=== PATIENT | female | born 1940 | race Caucasian/White ===

== ENCOUNTER 2018-07-09 05:59 | Emergency (ER) | payer OTHER ==
--- NOTE | 2018-07-09 06:27 | PDOC ---
*Physical Exam - Vital Signs Last Vital Signs Temp Pulse Resp BP Pulse Ox 98.2 F 86 20 154/86 96 07/09/18 06:10 07/09/18 06:10 07/09/18 06:10 07/09/18 06:10 07/09/18 06:10 Medical Decision Making - Medical Decision Making 07/09/18 06:25 Pt seen by Midlevel Provider under my direct supervision Pt interviewed and examined Ancillary studies reviewed I agree with plan as outlined by Midlevel Provider *DC/Admit/Observation/Transfer Diagnosis at time of Disposition: Musculoskeletal neck pain - Discharge Dispostion Disposition: HOME Condition at time of disposition: Improved - Prescriptions Prescriptions: Ibuprofen [Motrin -] 600 mg PO TID PRN #21 tablet PRN Reason: Pain Oxycodone HCl/Acetaminophen [Percocet 5-325 mg Tablet] 1 - 2 tab PO Q6H PRN #6 tab MDD 4 PRN Reason: Pain - Referrals Referrals: Gavin Sandoval MD [Primary Care Provider] - - Patient Instructions Printed Discharge Instructions: DI for Neck Pain Additional Instructions: Please take medication as prescribed, using Motrin during the day and Percocet for severe pain. If symptoms worsen despite taking the medication please return to the ER immediately. Otherwise follow-up primary care physician. - Post Discharge Activity
[2018-07-09 06:35] VITALS: TEMP 98.2; BMI 26.6
[2018-07-09] MEDS ORDERED: METHOCARBAMOL 500 MG TABLET PO ONE (06:35)
[2018-07-09] MEDS ORDERED: LIDOCAINE 5% TOPICAL PATCH TP ONE (06:35)
--- NOTE | 2018-07-09 06:40 | PDOC ---
History of Present Illness - General Chief Complaint: Pain, Acute Stated Complaint: NECK PAIN Time Seen by Provider: 07/09/18 06:17 History Source: Patient - History of Present Illness Initial Comments: 07/09/18 06:36 78 year old female with with right sided neck pain radiating up the head x 1 days. patient reports that she woke up with neck painb, unsure if strained it. denies midline pain, numbness or tingling to extremity, dizziness, chest pain. Past History - Past Medical History Allergies/Adverse Reactions: Allergies Allergy/AdvReac Type Severity Reaction Status Date / Time No Known Drug Allergies Allergy Verified 07/09/18 06:10 cream cheese Allergy Uncoded 07/09/18 06:10 Home Medications: Ambulatory Orders Amlodipine Besylate [Norvasc -] 5 mg PO DAILY 04/09/14 Doxazosin Mesylate 2 mg PO DAILY 04/09/14 Levothyroxine [Synthroid -] 88 mcg PO DAILY 04/09/14 Losartan Potassium 100 mg PO DAILY 04/09/14 Metformin HCl [Metformin HCl ER] 500 mg PO DAILY 04/09/14 Omeprazole [Prilosec (RX)] 20 mg PO DAILY 04/09/14 Simvastatin 10 mg PO DAILY 04/09/14 Pseudoephedrine HCl [Sudafed 12-Hour] 120 mg PO BID PRN #14 tablet.er 09/06/17 COPD: No Diabetes: Yes HTN: Yes Hypercholesterolemia: Yes Thyroid Disease: Yes (HYPOTHYROID) - Surgical History Orthopedic Surgery: Yes (Bilateral Knee replacement) - Family Disease History Family Disease History: Diabetes: Mother, Heart Disease: Father - Immunization History Immunization Up to Date: Yes - Suicide/Smoking/Psychosocial Hx Smoking History: Never smoked Have you smoked in the past 12 months: No Information on smoking cessation initiated: No Hx Alcohol Use: No Drug/Substance Use Hx: No Substance Use Type: None Hx Substance Use Treatment: No Review of Systems - Review of Systems Able to Perform ROS?: Yes Is the patient limited Macanese proficient: No Constitutional: No: Symptoms Reported, See HPI, Chills, Diaphoresis, Fever, Loss of Appetite, Malaise, Night Sweats, Weakness, Weight Stable, Unintentional Wgt. Loss, Unexplained wgt Loss, Other Musculoskeletal: Yes: Neck Pain, Other *Physical Exam - Vital Signs Last Vital Signs Temp Pulse Resp BP Pulse Ox 98.2 F 86 20 154/86 96 07/09/18 06:10 07/09/18 06:10 07/09/18 06:10 07/09/18 06:10 07/09/18 06:10 - Physical Exam General Appearance: Yes: Appropriately Dressed Neck: positive: Tender lateral (right side tender to palpation) Cardiovascular: positive: Regular Rhythm, Regular Rate Medical Decision Making - Medical Decision Making 07/09/18 06:38 neck pain likely muscular P: lidocaine patch robaxin *DC/Admit/Observation/Transfer Diagnosis at time of Disposition: Musculoskeletal neck pain - Referrals Referrals: Gavin Sandoval MD [Primary Care Provider] - - Patient Instructions - Post Discharge Activity
[2018-07-09] MEDS ORDERED: METHOCARBAMOL 500 MG TABLET ONE (06:47)
[2018-07-09] MEDS ORDERED: LIDOCAINE 5% TOPICAL PATCH ONE (06:48)
--- NOTE | 2018-07-09 07:43 | PDOC ---
*Physical Exam - Vital Signs Last Vital Signs Temp Pulse Resp BP Pulse Ox 98.2 F 86 20 154/86 96 07/09/18 06:10 07/09/18 06:10 07/09/18 06:10 07/09/18 06:10 07/09/18 06:10 ED Treatment Course - Medications Given in the ED: ED Medications Discontinued Medications Generic Name Dose Route Start Last Admin Trade Name Enedina PRN Reason Stop Dose Admin Lidocaine 1 patch 07/09/18 06:35 07/09/18 06:35 Lidoderm Patch - TP 07/09/18 06:36 1 patch ONCE ONE Administration Methocarbamol 500 mg 07/09/18 06:35 07/09/18 06:35 Robaxin - PO 07/09/18 06:36 500 mg ONCE ONE Administration Medical Decision Making - Medical Decision Making 07/09/18 07:22 Patient received in signout from Tamiko Mathews. Patient he will complaints of right -sided neck pain with no midline tenderness. Patient was given medication and we 'll reevaluate shortly. 07/09/18 09:06 After receiving Percocet, Patient states is asymptomatic. Patient will be discharged Motrin 600 and a few tablets of Percocet which I have explained she was at night before severe pain and to reserve the Motrin during the day. Patient also understands that if symptoms worsen to return to the ER immediately. *DC/Admit/Observation/Transfer Diagnosis at time of Disposition: Musculoskeletal neck pain - Discharge Dispostion Disposition: HOME Condition at time of disposition: Improved - Referrals Referrals: Gavin Sandoval MD [Primary Care Provider] - - Patient Instructions Printed Discharge Instructions: DI for Neck Pain Additional Instructions: Please take medication as prescribed, using Motrin during the day and Percocet for severe pain. If symptoms worsen despite taking the medication please return to the ER immediately. Otherwise follow-up primary care physician. - Post Discharge Activity
--- NOTE | 2018-07-09 07:45 | PDOC ---
*Physical Exam - Vital Signs Last Vital Signs Temp Pulse Resp BP Pulse Ox 98.2 F 86 20 154/86 96 07/09/18 06:10 07/09/18 06:10 07/09/18 06:10 07/09/18 06:10 07/09/18 06:10 ED Treatment Course - Medications Given in the ED: ED Medications Discontinued Medications Generic Name Dose Route Start Last Admin Trade Name Enedina PRN Reason Stop Dose Admin Lidocaine 1 patch 07/09/18 06:35 07/09/18 06:35 Lidoderm Patch - TP 07/09/18 06:36 1 patch ONCE ONE Administration Methocarbamol 500 mg 07/09/18 06:35 07/09/18 06:35 Robaxin - PO 07/09/18 06:36 500 mg ONCE ONE Administration Medical Decision Making - Medical Decision Making 07/09/18 07:24 Patient received in sign out from MAT Mathews. Patient here with complaints of heaviness to the left side of her head neck and upper chest. Patient recently had a head CT and is pending workup from her primary care physician along with starting new antihypertensive medication. Patient pending a carotid duplex. Patient was given labetalol secondary to elevated blood pressure in the ER which improved currently 150/90. 07/09/18 06:10 Blood Pressure 154/86 *DC/Admit/Observation/Transfer Diagnosis at time of Disposition: Musculoskeletal neck pain - Referrals Referrals: Gavin Sandoval MD [Primary Care Provider] - - Patient Instructions - Post Discharge Activity
[2018-07-09 10:20] VITALS: BP 118/73; PULSE 67
[2018-07-09] MEDS ORDERED: LIDOCAINE PATCH REMOVAL MC ONE (19:00)
== END 2018-07-09 09:16 | disposition home or self-care (01) ==
LOC: JER 05:59
DX: M54.2 Cervicalgia (principal); E11.9 Type 2 diabetes mellitus without complications; I10 Essential (primary) hypertension; E03.9 Hypothyroidism, unspecified
CPT/HCPCS: 99282-25

== ENCOUNTER 2019-04-16 09:25 | Day surgery (SDC) | payer OTHER ==
[2019-04-15 15:58] VITALS: BMI 32.9
[2019-04-16 11:56] VITALS: TEMP 98.4
[2019-04-16 14:35] VITALS: BP 117/58; PULSE 60
--- NOTE | 2019-04-17 17:05 | PATH ---
Surgical Pathology Report Patient Name: SHARONA FUCHS [facility]. Rec. #: [id number] /Age/Gender: 1940 (Age: 78) / F Account: [id number] Location: [facility]-ENDOSCOPY Taken: 04/16/2019 Received: 04/16/2019 Reported: 04/17/2019 Physicians: Sai Jackson M.D. Specimen(s) Received ANTRAL POLYP Clinical History History of antral polyp Postoperative diagnosis: Large antral polyp Final Diagnosis ANTRAL POLYP, POLYPECTOMY: GASTRIC HYPERPLASTIC POLYP. IMMUNOHISTOCHEMICAL STAIN FOR H. PYLORI IS NEGATIVE. Electronically Signed Bruna Barker M.D. Gross Description Received in formalin, labeled "antral polyp" are 2 velarde, irregular portions of soft tissue measuring 0.2 and 0.3 cm. in greatest dimension. The specimens are submitted in toto in one cassette. /04/16/2019 saudi/04/16/2019
== END 2019-04-16 13:55 | disposition home or self-care (01) ==
LOC: JASU-ENDO 09:25
PROVIDERS: ATTEND Internal Medicine Gastroenterology
PROC: 0DB68ZX Excision of Stomach, Via Natural or Artificial Opening Endoscopic, Diagnostic (ICD-10-PCS; principal; 2019-04-16 10:00)
DX: K31.7 Polyp of stomach and duodenum (principal)
CPT/HCPCS: 88305-TC; 88342-TC

== ENCOUNTER 2021-05-17 09:43 | Emergency (ER) | payer OTHER ==
[2021-05-17 09:56] VITALS: BP 169/90; PULSE 74; TEMP 98.9; BMI 31.9
[2021-05-17] MEDS ORDERED: ACETAMINOPHEN 1000 MG/100 ML VIAL (NON FORMULARY) IVPB ONE (10:09)
[2021-05-17] MEDS ORDERED: ONDANSETRON 4 MG/2 ML VIAL IVPUSH ONE (10:09)
[2021-05-17] MEDS ORDERED: FAMOTIDINE 20 MG/50 ML IVPB 20 MG/50 ML MG IVPB ONE ×2 (10:11→10:35)
[2021-05-17 10:24] LABS: EOS % 0.7 % (0-4.5); HEMATOCRIT 39.3 % (32.4-45.2); HEMOGLOBIN 12.9 GM/dL (10.7-15.3); LYMPH % 24.9 % (8-40); MCH 26.4 pg (25.7-33.7); MCHC 32.7 g/dl (32.0-36.0); MEAN CELL VOLUME 80.7 fl (80-96); MEAN PLT VOLUME 8.3 fl (7.5-11.1); MONO % 5.1 % (3.8-10.2); NEUT % 68.3 % (42.8-82.8); PLATELET COUNT 273 10^3/uL (134-434); RBC 4.87 M/mm3 (3.60-5.2); RDW 20.2 % (11.6-15.6); WHITE BLOOD COUNT 9.2 K/mm3 (4.0-10.0)
[2021-05-17] MEDS ORDERED: ACETAMINOPHEN INJECTION 100 ML IVPB ONE (10:35)
[2021-05-17] MEDS ORDERED: ONDANSETRON 4 MG/2 ML VIAL ONE ×2 (10:35→10:44)
[2021-05-17 10:44] LABS: CHLORIDE 104 mmol/L (98-107); SODIUM 139 mmol/L (136-145)
[2021-05-17 10:46] LABS: ALBUMIN 3.8 g/dl (3.4-5.0); ANION GAP 9 MMOL/L (8-16); BLOOD UREA NITROGEN 11.2 mg/dL (7-18); CALCIUM 9.6 mg/dL (8.5-10.1); CO2 26 mmol/L (21-32); LIPASE 103 U/L (73-393)
[2021-05-17 10:47] LABS: GLUCOSE,RANDOM 112 mg/dL (74-106)
[2021-05-17 10:48] LABS: CREATININE 0.6 mg/dL (0.55-1.3); SGOT/AST 16 U/L (15-37); SGPT/ALT 12 U/L (13-61)
[2021-05-17 10:50] LABS: BILIRUBIN,TOTAL 0.9 mg/dL (0.2-1); TOT PROT 7.7 g/dl (6.4-8.2)
[2021-05-17 10:52] LABS: ALK PHOS 83 U/L (45-117)
[2021-05-17] MEDS ORDERED: MAG HYDROX/AL HYDROX/SIMETH 30 ML UNIT-DOSE CUP PO ONE (12:42)
[2021-05-17] MEDS ORDERED: MAG HYDROX/AL HYDROX/SIMETH 30 ML UNIT-DOSE CUP ONE (13:38)
[2021-05-17 13:44] LABS: PH,URINE 7.5 (5.0-8.0); URINE APPEARANCE CLEAR; URINE BILIRUBIN NEGATIVE (NEGATIVE); URINE COLOR YELLOW; URINE GLUCOSE (UA) NEGATIVE (NEGATIVE); URINE KETONE NEGATIVE (NEGATIVE); URINE LEUK ESTERASE NEGATIVE (NEGATIVE); URINE NITRITE NEGATIVE (NEGATIVE); URINE PROTEIN NEGATIVE (NEGATIVE); URINE UROBILINOGEN 0.2 mg/dL (0.2-1.0)
== END 2021-05-17 14:51 | disposition home or self-care (01) ==
LOC: JER 09:43
PROC: 3E0333Z Introduction of Anti-inflammatory into Peripheral Vein, Percutaneous Approach (ICD-10-PCS; principal; 2021-05-17)
PROC: 3E03329 Introduction of Other Anti-infective into Peripheral Vein, Percutaneous Approach (ICD-10-PCS; 2021-05-17)
PROC: 3E03329 Introduction of Other Anti-infective into Peripheral Vein, Percutaneous Approach (ICD-10-PCS; 2021-05-17)
PROC: 3E03329 Introduction of Other Anti-infective into Peripheral Vein, Percutaneous Approach (ICD-10-PCS; 2021-05-17)
PROC: 3E033GC Introduction of Other Therapeutic Substance into Peripheral Vein, Percutaneous Approach (ICD-10-PCS; 2021-05-17)
PROC: 3E033GC Introduction of Other Therapeutic Substance into Peripheral Vein, Percutaneous Approach (ICD-10-PCS; 2021-05-17)
PROC: 3E03329 Introduction of Other Anti-infective into Peripheral Vein, Percutaneous Approach (ICD-10-PCS; 2021-05-17)
PROC: 3E03329 Introduction of Other Anti-infective into Peripheral Vein, Percutaneous Approach (ICD-10-PCS; 2021-05-17)
DX: K44.9 Diaphragmatic hernia without obstruction or gangrene (principal)
CPT/HCPCS: 36415; 71046-TC-FY; 74177-TC; 76705-TC; 80053; 81003; 82550; 83690; 84484; 85025; 87086; 93005; 93010; 96374; 96375; 96420; 99285-25; J0131; Q9967

== ENCOUNTER 2021-06-10 11:42 | Emergency (ER) | payer OTHER ==
[2021-06-10 12:01] VITALS: BP 142/64; PULSE 76; TEMP 98.2; BMI 32.1
== END 2021-06-10 13:05 | disposition home or self-care (01) ==
LOC: JERFT 11:42
DX: L03.818 Cellulitis of other sites (principal)
CPT/HCPCS: 99281-25

== ENCOUNTER 2021-07-18 04:40 | Day surgery (SDC) | payer OTHER ==
[2021-07-13 16:50] VITALS: BMI 35.1
[2021-07-18 11:52] VITALS: BP 108/55; PULSE 65; TEMP 97.8
== END 2021-07-18 11:49 | disposition home or self-care (01) ==
LOC: JASU-ENDO 04:40
PROVIDERS: ATTEND Internal Medicine Gastroenterology
PROC: 0DBN8ZX Excision of Sigmoid Colon, Via Natural or Artificial Opening Endoscopic, Diagnostic (ICD-10-PCS; 2021-07-18)
PROC: 0DBL8ZX Excision of Transverse Colon, Via Natural or Artificial Opening Endoscopic, Diagnostic (ICD-10-PCS; principal; 2021-07-18 10:30)
DX: Z12.11 Encounter for screening for malignant neoplasm of colon (principal); K63.5 Polyp of colon; K64.8 Other hemorrhoids; K57.30 Diverticulosis of large intestine without perforation or abscess without bleeding; Z86.010 Personal history of colon polyps; I10 Essential (primary) hypertension; E11.9 Type 2 diabetes mellitus without complications
CPT/HCPCS: 82962; 88305-TC

== ENCOUNTER 2021-08-01 04:34 | Day surgery (SDC) | payer OTHER ==
[2021-07-31 08:22] VITALS: BMI 35.1
[2021-08-01 10:18] VITALS: TEMP 97.1
[2021-08-01 11:01] VITALS: BP 132/62; PULSE 68
== END 2021-08-01 11:05 | disposition home or self-care (01) ==
LOC: JASU-ENDO 04:34
PROVIDERS: ATTEND Internal Medicine Gastroenterology
PROC: 0DB78ZX Excision of Stomach, Pylorus, Via Natural or Artificial Opening Endoscopic, Diagnostic (ICD-10-PCS; principal; 2021-08-01 09:51)
DX: K31.7 Polyp of stomach and duodenum (principal); K29.70 Gastritis, unspecified, without bleeding; K44.9 Diaphragmatic hernia without obstruction or gangrene
CPT/HCPCS: 82962; 88305-TC; 88342-TC

== ENCOUNTER 2022-02-20 09:46 | Emergency (ER) | payer OTHER ==
[2022-02-20 09:53] VITALS: TEMP 98.2; BMI 27.3
[2022-02-20] MEDS ORDERED: ACETAMINOPHEN 500 MG TABLET (FP) PO ONE (10:49)
[2022-02-20] MEDS ORDERED: LIDOCAINE 5% TOPICAL PATCH TP ONE (10:51)
[2022-02-20] MEDS ORDERED: METHOCARBAMOL 500 MG TABLET PO ONE (10:54)
[2022-02-20] MEDS ORDERED: LIDOCAINE 5% TOPICAL PATCH ONE (11:10)
[2022-02-20] MEDS ORDERED: ACETAMINOPHEN 325 MG TABLET (FP) ONE (11:10)
[2022-02-20] MEDS ORDERED: METHOCARBAMOL 500 MG TABLET ONE (11:10)
[2022-02-20 16:36] VITALS: BP 142/78; PULSE 86
[2022-02-20] MEDS ORDERED: LIDOCAINE PATCH REMOVAL MC SCH (22:00)
== END 2022-02-20 15:35 | disposition home or self-care (01) ==
LOC: JER 09:46
DX: M54.2 Cervicalgia (principal)
CPT/HCPCS: 99283-25

== ENCOUNTER 2022-03-19 09:43 | Emergency (ER) | payer OTHER ==
[2022-03-19 10:08] VITALS: BP 152/88; PULSE 16; TEMP 98.6; BMI 30.4
[2022-03-19] MEDS ORDERED: KETOROLAC TROMETHAMINE 30 MG/1 ML VIAL IM ONE (10:54)
[2022-03-19] MEDS ORDERED: KETOROLAC TROMETHAMINE 30 MG/1 ML VIAL ONE (11:24)
[2022-03-19 12:19] LABS: BASO % 0.4 % (0-2.0); HEMATOCRIT 35.1 % (32.4-45.2); HEMOGLOBIN 11.3 GM/dL (10.7-15.3); LYMPH % 13.6 % (8-40); MCH 27.4 pg (25.7-33.7); MCHC 32.3 g/dl (32.0-36.0); MEAN CELL VOLUME 84.9 fl (80-96); MEAN PLT VOLUME 8.8 fl (7.5-11.1); MONO % 5.7 % (3.8-10.2); NEUT % 80.3 % (42.8-82.8); PLATELET COUNT 286 10^3/uL (134-434); RBC 4.14 M/mm3 (3.60-5.2); RDW 15.5 % (11.6-15.6)
[2022-03-19 12:43] LABS: CALCIUM 9.5 mg/dL (8.5-10.1)
[2022-03-19 12:44] LABS: ALBUMIN 3.7 g/dl (3.4-5.0); BLOOD UREA NITROGEN 7.8 mg/dL (7-18)
[2022-03-19 12:48] LABS: BILIRUBIN,TOTAL 1.5 mg/dL (0.2-1)
[2022-03-19 12:49] LABS: TOT PROT 7.4 g/dl (6.4-8.2)
[2022-03-19 12:53] LABS: CREATININE 0.4 mg/dL (0.55-1.3)
== END 2022-03-19 14:21 | disposition home or self-care (01) ==
LOC: JER 09:43 → JERFT 09:43
PROC: 3E023GC Introduction of Other Therapeutic Substance into Muscle, Percutaneous Approach (ICD-10-PCS; principal; 2022-03-19)
DX: L03.114 Cellulitis of left upper limb (principal)
CPT/HCPCS: 36415; 73110-TC-LT-FY; 73130-TC-LT-FY; 80053; 85025; 96372; 99284-25

== ENCOUNTER 2023-12-05 04:19 | Day surgery (SDC) | payer OTHER ==
[2023-11-28 12:34] VITALS: BMI 32.0
[2023-12-05 09:22] VITALS: TEMP 97.5
[2023-12-05 09:55] VITALS: BP 126/65; PULSE 62; RESP 12
== END 2023-12-05 10:00 | disposition home or self-care (01) ==
LOC: JASU-ENDO 04:19
PROVIDERS: ATTEND Internal Medicine Gastroenterology
PROC: 0DB78ZX Excision of Stomach, Pylorus, Via Natural or Artificial Opening Endoscopic, Diagnostic (ICD-10-PCS; 2023-12-05)
PROC: 0DB68ZX Excision of Stomach, Via Natural or Artificial Opening Endoscopic, Diagnostic (ICD-10-PCS; 2023-12-05)
PROC: 0DB98ZX Excision of Duodenum, Via Natural or Artificial Opening Endoscopic, Diagnostic (ICD-10-PCS; principal; 2023-12-05 09:00)
DX: D50.9 Iron deficiency anemia, unspecified (principal); K29.50 Unspecified chronic gastritis without bleeding; K44.9 Diaphragmatic hernia without obstruction or gangrene
CPT/HCPCS: 82962; 88305-TC; 88342-TC

== ENCOUNTER 2024-05-26 09:45 | Day surgery (SDC) | payer OTHER ==
[~2024-05-26 09:45] MED LIST: IRON DEXTRAN COMPLEX 1,000 MG in SODIUM CHLORIDE 250 ML IVPB ONE
[2024-05-26] MEDS: SODIUM CHLORIDE 1,000 ML IV ONE (10:40)
[2024-05-26] MEDS: IRON DEXTRAN COMPLEX 1,000 MG in SODIUM CHLORIDE 250 ML IVPB ONE (10:40)
[2024-05-26 12:19] VITALS: RESP 20; TEMP 99.3
[2024-05-26 18:47] VITALS: BP 136/60; PULSE 65
== END 2024-05-26 12:15 | disposition home or self-care (01) ==
LOC: JONCNONCHE 09:45 → J7W 09:45 → JONCNONCHE 12:15
PROVIDERS: ATTEND Student in an Organized Health Care Education/Training Program
PROC: 3E033GC Introduction of Other Therapeutic Substance into Peripheral Vein, Percutaneous Approach (ICD-10-PCS; principal; 2024-05-26)
DX: D50.9 Iron deficiency anemia, unspecified (principal)
CPT/HCPCS: 96365; J1750

== ENCOUNTER 2024-07-02 13:11 | Emergency (ER) | payer OTHER ==
[2024-07-02 13:24] VITALS: RESP 19; TEMP 98.4; BMI 30.9
[2024-07-02] MEDS ORDERED: ACETAMINOPHEN INJECTION 100 ML ONE (14:12)
[2024-07-02] MEDS: ACETAMINOPHEN 1000 MG/100 ML BAG IVPB ONE (14:37)
[2024-07-02 14:51] LABS: BASO % 1.1 % (0-2.0); EOS % 1.6 % (0-4.5); HEMATOCRIT 35.7 % (32.4-45.2); HEMOGLOBIN 11.3 GM/dL (10.7-15.3); LYMPH % 23.2 % (8-40); MCH 25.8 pg (25.7-33.7); MCHC 31.7 g/dl (32.0-36.0); MEAN CELL VOLUME 81.2 fl (80-96); MEAN PLT VOLUME 8.8 fl (7.5-11.1); MONO % 5.6 % (3.8-10.2); NEUT % 68.5 % (42.8-82.8); PLATELET COUNT 247 10^3/uL (134-434); RDW 25.5 % (11.6-15.6)
[2024-07-02 15:20] LABS: POTASSIUM 5.6 mmol/L (3.5-5.1)
[2024-07-02 15:21] LABS: CALCIUM 9.2 mg/dL (8.5-10.1)
[2024-07-02 15:22] LABS: ALBUMIN 3.4 g/dl (3.4-5.0)
[2024-07-02 15:25] LABS: CREATININE 0.5 mg/dL (0.55-1.3)
[2024-07-02 15:27] LABS: TOT PROT 7.6 g/dl (6.4-8.2)
[2024-07-02 15:33] LABS: ANISOCYTOSIS 2+; HELMET CELLS 0; MACROCYTOSIS 1+; OVALOCYTE 0; ROULEAU 0; SICKELED CELLS 0; TARGET CELLS 0; TEAR DROP CELLS 0
[2024-07-02 16:31] LABS: HIV INTERPRETATION NEGATIVE (NEGATIVE)
[2024-07-02 16:58] LABS: EPI CELLS 16 /uL (0-25.1); HYALINE CASTS 0 /uL (0-3.1); PH,URINE 8.5 (5.0-8.0); URINE APPEARANCE CLEAR; URINE BACTERIA 8 /uL (0-1359); URINE BILIRUBIN NEGATIVE (NEGATIVE); URINE COLOR YELLOW; URINE GLUCOSE (UA) NEGATIVE (NEGATIVE); URINE KETONE NEGATIVE (NEGATIVE); URINE LEUK ESTERASE 2+ (NEGATIVE); URINE NITRITE NEGATIVE (NEGATIVE); URINE PROTEIN NEGATIVE (NEGATIVE); URINE RBC 9 /uL (0-23.9); URINE WBC 88 /uL (0-25.8)
[2024-07-02 17:24] LABS: POTASSIUM 4.1 mmol/L (3.5-5.1)
[2024-07-02 17:26] LABS: ALBUMIN 3.6 g/dl (3.4-5.0); BLOOD UREA NITROGEN 6.8 mg/dL (7-18); CALCIUM 9.4 mg/dL (8.5-10.1)
[2024-07-02 17:29] LABS: CREATININE 0.5 mg/dL (0.55-1.3)
[2024-07-02 17:31] LABS: BILIRUBIN,TOTAL 0.9 mg/dL (0.2-1); TOT PROT 7.6 g/dl (6.4-8.2)
[2024-07-02 21:45] VITALS: BP 147/90; PULSE 83
== END 2024-07-02 21:45 | disposition home or self-care (01) ==
LOC: JER 13:11
PROC: 3E033NZ Introduction of Analgesics, Hypnotics, Sedatives into Peripheral Vein, Percutaneous Approach (ICD-10-PCS; principal; 2024-07-02)
DX: R10.11 Right upper quadrant pain (principal); K59.00 Constipation, unspecified; K57.90 Diverticulosis of intestine, part unspecified, without perforation or abscess without bleeding; Z20.822 Contact with and (suspected) exposure to COVID-19
CPT/HCPCS: 0241U-QW; 36415; 71046-TC-FY; 74177-TC; 76705-TC; 80053; 81003; 83690; 85025; 86803; 87086; 87389; 93005; 93010; 99285-25; J0131

== ENCOUNTER → 2025-08-02 | Day surgery (SDC) | payer OTHER | END | disposition home or self-care (01) | LOC: JRADIR 10:28 | PROVIDERS: ATTEND Internal Medicine Endocrinology, Diabetes & Metabolism | PROC: 0G9K3ZX Drainage of Thyroid Gland, Percutaneous Approach, Diagnostic (ICD-10-PCS; principal; 2025-08-02) | DX: E04.1 Nontoxic single thyroid nodule (principal) | CPT/HCPCS: 10005; 76942; 88173; 88305-TC ==